=== PATIENT | female | born 1985 | race Caucasian/White ===

== ENCOUNTER → 2023-06-11 | Outpatient (CLI) | payer OTHER, SELFPAY ==
--- NOTE | 2023-06-11 14:19 | NEURO ---
NCS and/or EMG Patient Report Ordering Doctor: Waleska Lauren DATE OF SERVICE: 06/11/23 Michelle presents electrodiagnostic testing of the right upper limb. She reports right sided neck and upper arm pain. Pain radiates towards the hand. She has intermittent numbness in the fingers. Electrodiagnostic findings: Right median motor nerve demonstrates prolonged latency with normal amplitude and conduction velocity. Normal right ulnar motor response. Normal median ulnar F?waves. Mildly prolonged right median sensory latency at the wrist. Normal ulnar and radial sensory responses. Needle EMG testing was performed in the right upper limb. 1+ fibrillations are noted in the right triceps, flexor carpi ulnaris and lower right cervical paraspinals. There is decreased recruitment pattern in the right triceps. Electrodiagnostic assessment: This is an abnormal study in the right upper limb 1. Electrodiagnostic findings suggestive of an acute right C7 radiculopathy 2. Electrodiagnostic findings suggestive of right-sided median mononeuropathy. This is consistent with a mild right carpal tunnel syndrome. Multi Select Codes Neurology Neurology Interp Codes: 72747-39 Musc test done w/n test comp (interp) and 56973-10 Nrv cndj test 7-8 studies (interp)
== END | disposition home or self-care (01) ==
PROVIDERS: PCP Family Medicine; Referring Provider Physician Assistant; Visit Provider Physician Assistant
DX: R20.2 Paresthesia of skin (principal); M54.2 Cervicalgia; M54.12 Radiculopathy, cervical region
CPT/HCPCS: 95886; 95910